=== PATIENT | male | born 1940 | race Caucasian/White ===

== ENCOUNTER 2021-09-12 17:38 | Inpatient (IN) | payer OTHER ==
[~2021-09-12] VITALS: Ht 175.3 cm; Wt 83.9 kg
[2021-09-12 17:38] VITALS: BP 164/59
[~2021-09-12 17:38] MED LIST: BACTROBAN CREAM30 G1 TOP; BAYER CHEWABLE81 MG PO; HCTZ/LISINOPRIL PO; KETODAN 2% FOA554 GM TP; KRILL OIL500 MG PO; LIPITOR 20 MG T20 M1 PO; MEGA RED; MULTIVITAMIN; PRILOSEC OTC20 MG PO; SYNTHROID125 MC1 PO; TOPROL XL50 MG PO; TRAMADOL 50 MG50 MG PO
[2021-09-12 18:32] LABS: ABSOLUTE EOSINOPHILS 0.2 thou/uL (0.0-0.7); ABSOLUTE LYMPHOCYTES 0.9 thou/uL (0.8-5.3); ABSOLUTE MONOCYTES 0.6 thou/uL (0.0-1.2); BASOPHILS 0.9 %; EOSINOPHILS 3.4 %; HEMATOCRIT 44.4 % (42.0-52.0); LYMPHOCYTES 16.1 %; MCH 30.6 pg (26.0-34.0); MCHC 33.8 g/dL (28.0-37.0); MCV 90.7 fL (80.0-100.0); MONOCYTES 10.3 %; MPV 7.9 fl. (7.2-11.1); NUCLEATED RBCS 0 /100WBC; PLATELET COUNT* 149 thou/uL (150-400); POLYS 69.3 %; RDW-CV 14.7 % (10.5-14.5); WBC 5.8 thou/uL (4.0-11.0)
[2021-09-12 18:40] LABS: CALCIUM 8.4 mg/dL (8.5-10.1); CREATININE 0.9 mg/dL (0.6-1.3); POTASSIUM 3.7 mmol/L (3.5-5.1)
[2021-09-12 18:41] LABS: INR 1.1; PROTIME 11.7 Seconds (9.20-11.50)
[2021-09-12 18:45] LABS: ALBUMIN 3.4 g/dL (3.4-5.0); TOTAL BILIRUBIN 0.6 mg/dL (<0.1-1.0); TOTAL PROTEIN 6.8 g/dL (6.4-8.2)
[2021-09-12 23:25] VITALS: BP 130/68
[2021-09-12 23:42] VITALS: BP 186/76
[2021-09-13] VITALS (31 sets, daily range): BP systolic 108–172; BP diastolic 41–141
--- NOTE | 2021-09-13 10:39 | EKG ---
[place] [address] ELECTROCARDIOGRAM REPORT Name: ELIDA BREWSTER Room: [address] ADM IN .R.#: [id number] Admission: 09/12/21 Attend Phys: Manuel Santana Discharge: Date of : 44 Date of Service: 09/12/211817 Report #: [id number] THIS REPORT FOR: //name// [facility] ED Test Date: 2021-09-12 Test Time: 18:18:13 Pat Name: ELIDA BREWSTER Department: Room: [facility] Gender: M Insulation Supervisor: FRANK : 1940 Requested By: Óscar Saavedra Order Number: [id number] MD: Fran Mathur Measurements Intervals [place] Rate: 46 P: -72 NH: 204 QRS: -66 QRSD: 128 T: 36 QT: 479 QTc: 419 Interpretive Statements Sinus or ectopic atrial bradycardia Left bundle branch block No previous ECG available for comparison Electronically Signed On 09-13-2021 10:39:24 [employer] by Fran Mathur [email or web address] <ELECTRONICALLY SIGNED> By: Devon Mathur MD, [facility] 09/13/21 1039 17 17 Devon Mathur MD, [facility] /EPI
[2021-09-13 13:03] LABS: CHOLESTEROL 94 mg/dL (<200); HDL CHOLESTEROL 42 mg/dL (>40); LDL CHOLESTEROL 40 mg/dL (<100); TC:HDL 2.2 Ratio (Not establshd); TRIGLYCERIDE 64 mg/dL (<150); VLDL 13 mg/dL (<40)
[2021-09-13 13:04] LABS: SERUM ASSESSMENT Clear
[2021-09-14 04:00] VITALS: BP 159/71
[2021-09-14 04:06] LABS: GLYCOHEMOGLOBIN (HGB A1C) 5.9 % (4.8-5.6)
[2021-09-14 08:00] VITALS: BP 139/73
[2021-09-14 12:00] VITALS: BP 106/64
[2021-09-14 16:00] VITALS: BP 146/67
--- NOTE | 2021-09-14 18:05 | 2DMMODE ---
[place] [address] 2 D/M-MODE ECHOCARDIOGRAM Name: ELIDA BREWSTER Room: [address] [facility].#: [id number] Admission: 09/12/21 Attend Phys: Manuel Santana Discharge: Date of : 44 Date of Service: 09/14/21 1805 Report #: [id number] THIS REPORT FOR: cc: Vic Galvez MD, Ram N. MD Blick, David R. MD [facility] ~ APPROVED REPORT Study performed: 09/14/2021 13:23:41 EXAM: Comprehensive 2D, Doppler, and color-flow Echocardiogram Patient Location: In-Patient Room #: [facility] Status: routine BSA: 2.00 HR: 50 bpm BP: 139/73 mmHg Rhythm: NSR Other Information Study Quality: Good Indications CVA/TIA Echo Enhancing Agent Indication: Rule out Shunt Agent(s) / Amount(s) Used: Agitated Saline 10 cc 2D Dimensions IVSd: 10.39 (7-11mm) LVOT Diam: 21.80 (18-24mm) LVDd: 50.15 mm PWd: 12.22 (7-11mm) Ascending Ao: 34.84 (22-36mm) LVDs: 29.88 (25-40mm) Aortic Root: 35.36 mm Volumes Left Atrial Volume (Systole) LA ESV Index: 27.40 mL/m2 Aortic Valve AoV Peak Mao.: 1.27 m/s AO Peak Gr.: 6.46 mmHg LVOT Max P.56 mmHg AO Mean Gr.: 3.33 mmHg LVOT Mean [place]97 [place] [address] 2 D/M-MODE ECHOCARDIOGRAM Name: ELIDA BREWSTER Room: [address] IN ..#: [id number] Admission: 09/12/21 Attend Phys: Manuel Santana Discharge: Date of : 44 Date of Service: 09/14/21 1805 Report #: [id number] LVOT Max V: 1.18 m/s AO V2 VTI: 30.65 cm LVOT Mean V: 0.63 m/s ARMANI (VTI): 3.93 cm2 LVOT V1 VTI: 32.23 cm Mitral Valve E/A Ratio: 0.60 MV Decel. Time: 381.24 ms MV E Max Mao.: 0.65 m/s MV PHT: 110.56 ms MVA (PHT): 1.99 cm2 TDI E/Lateral E': 10.83 E/Medial E': 10.83 Medial E' Mao.: 0.06 m/s Lateral E' Mao.: 0.06 m/s Pulmonary Valve PV Peak Mao.: 0.98 m/s PV Peak Gr.: 3.87 mmHg Tricuspid Valve RAP Estimate: 5.00 mmHg TR Peak Gr.: 32.72 mmHg RVSP: 37.00 mmHg PA Pressure: 37.00 mmHg Left Ventricle The left ventricle is normal size. There is normal LV segmental wall motion. Mild concentric left ventricular hypertrophy. Left ventricular systolic function is normal. The left ventricular ejection fraction is within the normal range. LVEF is 65-70%. Grade I - abnormal relaxation pattern. Right Ventricle Right ventricle is dilated. The right ventricular systolic function is normal. Atria Left atrium is mildly dilated. The interatrial septum is intact with no evidence for an atrial septal defect. Right atrium is dilated. Aortic Valve Mild aortic valve sclerosis. Trace aortic regurgitation. There is no aortic valvular stenosis. Mitral Valve The mitral valve is normal in structure. [place] [address] 2 D/M-MODE ECHOCARDIOGRAM Name: ELIDA BREWSTER Room: [address]#: [id number] Admission: 09/12/21 Attend Phys: Manuel Santana Discharge: Date of : 44 Date of Service: 09/14/21 1805 Report #: [id number] No evidence of mitral valve stenosis. Tricuspid Valve The tricuspid valve is normal in structure. Trace tricuspid regurgitation. Mild pulmonary hypertension. Pulmonic Valve The pulmonary valve is normal in structure. There is no pulmonic valvular regurgitation. Great Vessels The aortic root is normal in size. IVC is normal in size and collapses >50% with inspiration. Pericardium There is no pericardial effusion. <Conclusion> Mild concentric left ventricular hypertrophy. LVEF is 65-70%. Left atrium is mildly dilated. Mild aortic valve sclerosis. The interatrial septum is intact with no evidence for an atrial septal defect. <ELECTRONICALLY SIGNED> By: Jair Banegas MD, FACC 09/14/211804 04 04 Jair Banegas MD, FACC /INF
[2021-09-14 20:02] VITALS: BP 156/75
[2021-09-15 00:01] VITALS: BP 30/60
[2021-09-15 05:26] VITALS: BP 134/69
[2021-09-15 08:00] VITALS: BP 130/66
[2021-09-15 12:00] VITALS: BP 132/61
[2021-09-15] MEDS ORDERED: LIPITOR 40 MG T40 M1 PO (12:37)
[2021-09-15] MEDS ORDERED: ADULT LOW DOSE81 MG PO (12:37)
[2021-09-15 15:06] VITALS: BP 132/61
[2021-09-15 15:20] VITALS: BP 132/61
== END 2021-09-15 16:36 | disposition home health service (06) | DRG 61 ==
LOC: M.ERS 17:38 → M.ICU 18:51 → M.TBA-ER 18:51 → M.2W 18:51 → M.ICU 23:46 → M.2W 09-14 04:00
PROVIDERS: Emergency Medicine Emergency Medical Services; ADMIT Internal Medicine; ATTEND Internal Medicine
DX: I63.9 Cerebral infarction, unspecified (principal); G93.41 Metabolic encephalopathy; I65.21 Occlusion and stenosis of right carotid artery; I10 Essential (primary) hypertension; I65.02 Occlusion and stenosis of left vertebral artery; E78.5 Hyperlipidemia, unspecified; G31.84 Mild cognitive impairment of uncertain or unknown etiology; I73.9 Peripheral vascular disease, unspecified; Z20.822 Contact with and (suspected) exposure to COVID-19